=== PATIENT | female | born 1930 | race Caucasian/White ===

== ENCOUNTER 2016-10-27 12:22 | Inpatient (IN) ==
[2016-10-27] MEDS ORDERED: NS 1,000 ML IV ONE (12:55)
--- NOTE | 2016-10-27 13:07 | PROVIDER DOCUMENTATION ---
HPI-General Adult - General Source: patient, family - History of Present Illness -Gen Adult Nature of Presenting Problems: 86 year old female presents to the ER with complaint of wheezing and fever since last pm. Pt was seen in ER three weeks ago for food in esophagus, it was removed and pt was discharged with home breathing treatments. Onset/Duration: reports: last night <Ivonne Taylor - Last Filed: 10/27/16 14:56> <Ashkan Cope - Last Filed: 10/28/16 11:29> - General Chief Complaint: Possible Sepsis-D Stated Complaint: SOB, WHEEZING Time Seen by Provider: 10/27/16 12:34 Allergies/Adverse Reactions: Patient Allergies Allergy/AdvReac Type Severity Reaction Status Date / Time Sulfa (Sulfonamide Allergy Mild RASH Verified 10/27/16 12:52 Antibiotics) Home Medications: Home Medication List Medication Instructions Recorded Confirmed Last Taken Type Alprazolam 0.25 mg PO BID 09/23/16 10/27/16 10/27/16 History Aspirin [Aspir-Low] 81 mg PO DAILY 09/23/16 10/27/16 10/27/16 History Calcium Carbonate/Vitamin D3 1 tab PO DAILY 09/23/16 10/27/16 10/27/16 History [Oscal 500 + D] Calcium Polycarbophil [Fiber 625 mg PO DAILY 09/23/16 10/27/16 10/27/16 History Therapy] Citalopram [Celexa] 20 mg PO DAILY 09/23/16 10/27/16 10/27/16 History Clopidogrel [Plavix] 75 mg PO DAILY 09/23/16 10/27/16 10/27/16 History Dextran 70/Hypromellose 2 drop OPH DAILY 09/23/16 10/27/16 10/27/16 History [Artificial Tears] Meclizine [Antivert] 12.5 mg PO BID 09/23/16 10/27/16 10/27/16 History Memantine Xr [Namenda Xr] 7 mg PO DAILY 09/23/16 10/27/16 10/27/16 History Metoprolol Tartrate 25 mg PO BID 09/23/16 10/27/16 10/27/16 History Nitroglycerin [Nitrostat] 0.4 mg SL DIRECTED 09/23/16 10/27/16 Unknown History Quetiapine E.r. [Seroquel Xr] 50 mg PO QHS 09/23/16 10/27/16 1 Day Ago History Omeprazole [Prilosec] 40 mg PO BID #0 capsule. 09/24/16 10/27/16 10/27/16 Rx Review of Systems - Adult - REVIEW OF SYSTEMS - ADULT Constitutional: reports: fever. denies: chills Eyes: reports: no symptoms reported Ears, Nose, Mouth & Throat: reports: no symptoms reported Cardiovascular: reports: no symptoms reported Respiratory: reports: shortness of breath, wheezing Gastrointestinal: reports: no symptoms reported Genitourinary: reports: no symptoms reported Musculoskeletal: reports: no symptoms reported Integumentary: reports: no symptoms reported Neurological: reports: no symptoms reported Psychiatric: reports: no symptoms reported Endocrine: reports: no symptoms reported Hematologic/Lymphatic: reports: no symptoms reported Allergic/Immunologic: reports: no symptoms reported All Other Systems: Reviewed and Negative <Ivonne Taylor - Last Filed: 10/27/16 14:56> Past History - Adult - PAST MEDICAL HISTORY-ADULT Review of Records: reports: Old Records Reviewed, Nursing Assessment Review, Medications Reviewed Cardiovascular: reports: pacemaker Musculoskeletal: reports: arthritis Psychiatric: reports: other (dementia) - IMMUNIZATION STATUS Childhood Immunizations: See Nurse Assessment Flu Vaccine: See Nurse Assessment <Ivonne Taylor - Last Filed: 10/27/16 14:56> Physical Exam-General - CONSTITUTIONAL General Appearance: no apparent distress, slow to respond - EYES Eyes: PERRL/EOMI, pink conjunctivae - HEAD, EARS, NOSE, MOUTH & THROAT HENMT: normocephalic/atraumatic. negative: moist mucous membranes - NECK Neck: non-tender, supple - RESPIRATORY Respiratory: chest non-tender, wheezing - CARDIOVASCULAR Cardiovascular: normal peripheral pulses, regular rate, rhythm - GASTROINTESTINAL (ABDOMEN) Abdominal Exam: non tender, soft - MUSCULOSKELETAL Back Exam: no CVA tenderness, no vertebral tenderness Extremity: normal range of motion, non-tender - SKIN Integumentary: normal color, warm/dry - NEUROLOGIC Neurologic: grossly normal, no motor/sensory deficits - PSYCHIATRIC Psych/Mental Status: normal mood/affect, normal thought content, normal thought process, oriented x 3 <Ivonne Taylor - Last Filed: 10/27/16 14:56> Progress - EKG 1 Time of EKG reading by physician:: 13:09 EKG Read and Signed by:: Ashkan Cope EKG Interpretation (*Must complete 3 of following elements*): Abnormal Rate: 80 Rhythm: atrial sensed ventricular paced rhythm [place]: normal - CONSULTS/PCP/HOSPITALIST Notification #1 *Consult/PCP/Hospitalist*: Spoke with [facility], Dr. Oates Time Discussed: 14:38 Reason/Comments: Agreed to admission #2 Consult: Dr. Clifford Time Discussed: 15:32 Reason/Comments: Agreed to admit Consult Disposition: Admit <Ivonne Taylor - Last Filed: 10/27/16 14:56> Departure - Departure Time of Disposition Order: 15:32 Certified Medical Emergency: Emergent <Ivonne Taylor - Last Filed: 10/27/16 14:56> - Critical Care Note Total Time (mins): 65 Critical Care Statement: This patient required my direct personal management to treat or rule out processes, the absence of which, could potentiallly result in sudden, clinically significant life or limb threatening deterioration. <Ashkan Cope - Last Filed: 10/28/16 11:29> - Departure DIAGNOSIS: CHF (congestive heart failure) Qualifiers: Congestive heart failure type: unspecified congestive heart failure type Congestive heart failure chronicity: unspecified congestive heart failure chronicity Qualified Code(s): I50.9 - Heart failure, unspecified Pneumonia Qualifiers: Pneumonia type: due to unspecified organism Laterality: unspecified laterality Lung location: unspecified part of lung Qualified Code(s): J18.9 - Pneumonia, unspecified organism Disposition: ADMITTED INPATIENT 09 Condition: Stable Attestation - Scribe Verification/Attestation Scribe:: Ivonne Taylor Acting as Scribe for:: Ashkan Cope Scribe documention review:: This chart was documented by a scribe and accurately reflects the service the provider performed and the decisions made by the provider. <Ivonne Taylor - Last Filed: 10/27/16 14:56> Physician Attestation - Physician Attestation I, the provider, attest to the following statement:: Ashkan Cope Physician documentation Attestation:: This documentation recorded by the scribe accurately reflects the service I personally performed and the decisions made by me. <Ashkan Cope - Last Filed: 10/28/16 11:29>
[2016-10-27 13:25] LABS: BASO% 0.1 % (0.0-0.8); HEMATOCRIT 33.8 % (37.0-47.0); LYMPH# 0.69 X1000 (1.2-3.4); MANUAL DIFF NEEDED? NO; MCH 27.6 PG (27-31); MCHC 32.5 g/dL (33-37); MCV 84.9 FL (81-99); MONO# 0.56 X1000 (0.11-0.59); MONO% 4.9 % (1.7-9.3); MPV 11.4 FL (7.4-10.4); PLT 150 X1000 (130-400); RBC 3.98 XMIL (4.2-5.4)
[2016-10-27 13:28] LABS: INR 1.11; PROTIME 11.7 Seconds (9.2-11.7); PTT 30.7 Seconds (22.0-36.0)
[2016-10-27 13:46] LABS: URINE SOURCE CATH
[2016-10-27 13:47] LABS: ALBUMIN 3.4 g/dL (3.5-5.0); CALCIUM 9.2 mg/dL (8.8-10.2); POTASSIUM 3.7 mmol/L (3.5-5.1); TOTAL BILIRUBIN 0.8 mg/dL (0.20-1.00); TOTAL PROTEIN 7.1 g/dL (6.3-8.3)
[2016-10-27 13:52] LABS: ALLEN TEST YES; BE -4.3 mmoll (-3.0-3.0); BLOOD TYPE ARTERIAL; DRAW SITE R RADIAL; METHB 1.9 % (0.0-1.5); O2(CT) 14.2 mL/dL (15.0-23.0); PCO2(98.6) 31 mmHg (35-45); PO2(98.6) 127 mmHg (60-100); SAMPLE BLOOD; SAO2 99.5 % (95.0-100.0); THB 10.3 g/dL (11.5-17.4); pH(98.6) 7.41 (7.35-7.45)
[2016-10-27 13:54] LABS: MODALITY CANNULA
[2016-10-27 14:04] LABS: BILIRUBIN URINE SMALL (NEGATIVE); BLOOD URINE TRACE-LYSED (NEGATIVE); CLARITY CLOUDY (CLEAR); COLOR YELLOW; GLUCOSE URINE NEGATIVE (NEGATIVE); LEUKOCYTES URINE NEGATIVE (NEGATIVE); NITRITE URINE NEGATIVE (NEGATIVE); PH URINE 5.5; PROTEIN URINE 30 mg/dL (NEGATIVE); SP GRAVITY URINE >= 1.030; UROBILINOGEN URINE 0.2 EU/dL (0.2-1.0)
[2016-10-27 14:09] LABS: URINE CULTURE NEEDED? NO; URINE EPITHELIAL CELLS <10 /HPF (<10); URINE RBC <10 /HPF (<10); URINE WBC <10 /HPF (<10)
[2016-10-27 14:10] LABS: URINE CAST GRANULAR PRESENT /LPF
[2016-10-27] MEDS ORDERED: LEVAQUIN 750 MG in NS 150 ML IV ONE (14:35)
[2016-10-27] MEDS ORDERED: LEVAQUIN 750 MG/D5W 150 ML IV ONE (14:45)
[2016-10-27] MEDS ORDERED: LASIX IV ONE (14:51)
--- NOTE | 2016-10-27 15:20 | Diag Imaging Result Document ---
PROCEDURE NAME: CHEST-2 VIEWS - 10/27/2016 CHEST X-RAY, 2 VIEWS: COMPARISON: 09/24/2016. FINDINGS: Lung volumes are much lower. There is new ill-defined interstitial infiltrates bilaterally compatible with pulmonary edema. Stable cardiomegaly. There are trace pleural effusions. IMPRESSION: Cardiomegaly, pulmonary edema, pleural effusions.
[2016-10-27] MEDS ORDERED: VANCOMYCIN IV PER PHARMACY MISC SCH (16:30)
[2016-10-27] MEDS ORDERED: DUONEB (A & A) INH PRN (16:38)
[2016-10-27] MEDS ORDERED: NITROGLYCERIN SL SCH (16:38)
--- NOTE | 2016-10-27 16:53 | Diag Imaging Result Document ---
PROCEDURE NAME: CT THORAX W/O CONTRAST - 10/27/2016 CT OF THE CHEST: A CT dose reduction protocol was used. COMPARISON: Chest x-ray earlier. FINDINGS: There is pneumonia throughout the left lower lobe. There is also bronchitis diffusely and bilaterally. There is some ill-defined infiltrate/atelectasis in the right upper lobe. There is cardiomegaly. Large hiatal hernia. There is a left-sided dual-chamber pacemaker in good position. There is significant scoliosis and degeneration throughout the spine. No acute bony lesions. IMPRESSION: 1. Left lower lobe infiltrate/pneumonia. 2. Small infiltrate in the right upper lobe. 3. Severe cardiomegaly. 4. Severe chronic bronchitis. [facility]
[2016-10-27] MEDS: ZOSYN 3.375 GM/NS 50 ML IV SCH ×2 (17:00→22:39)
[2016-10-27] MEDS ORDERED: VANCOMYCIN 1 GM/NS 250 ML IV SCH (18:00)
--- NOTE | 2016-10-27 18:06 | HISTORY AND PHYSICAL ---
CHIEF COMPLAINT: Shortness of breath and wheezing. HISTORY OF PRESENT ILLNESS: Mrs. Zuleta is an 86-year-old female with a known history of CAD, sick sinus syndrome status post pacemaker, hypertension, dementia and others who presents with worsening wheezing and shortness of breath over the past few days. Patient has dementia and is unable to give any type of history. Her daughter is at the bedside able to answer questions. The daughter states that she has been wheezing and coughing more and visibly short of breath. Home health came over yesterday and measured temperature axillary at 102 degrees Fahrenheit. There has been no lower extremity edema. No complaints of chest pain. No abdominal pain, nausea or vomiting. Mrs. Zuleta was here around a month ago as she had a choking episode and required EGD by Dr. Guerrero. Her daughter states that since that time she has not really been doing well respiratory wayne, coughing and wheezing but worse over the past few days. When she came to the ER today she had labs and diagnostics done and she was noted to have mildly elevated white count. She was mildly anemic with renal insufficiency, elevated troponin and proBNP elevation. Chest x- ray shows bilateral infiltrates consistent with pulmonary edema. She is now going to be admitted for further treatment and evaluation. PAST MEDICAL HISTORY: 1. CAD. 2. Sick sinus syndrome status post pacemaker. 3. Dementia. 4. Hypertension. 5. MVR. 6. Hyperlipidemia. 7. GERD. SURGICAL HISTORY: CABG, pacemaker implantation and revision, right breast lumpectomy, hysterectomy, cholecystectomy. SOCIAL HISTORY: Patient lives at home with her daughter. There is also home health and patient does not smoke, drink or use illicit substances. FAMILY HISTORY: Noncontributory. REVIEW OF SYSTEMS: Essentially unable to be obtained. ALLERGIES: To sulfa. HOME MEDICATIONS: Xanax 0.25 mg b.i.d., aspirin 81 mg daily, calcium carbonate and vitamin D 1 daily, fiber capsule 1 daily, Celexa 20 mg daily, Plavix 75 mg daily, Antivert 12.5 mg b.i.d., Namenda XR 7 mg daily, metoprolol tartrate 25 mg b.i.d., Nitrostat 0.4 mg as needed, Seroquel XR 50 mg at bedtime, Prilosec 40 mg b.i.d. PHYSICAL EXAMINATION: VITAL SIGNS: Blood pressure is 112/49, heart rate 73, respiratory rate is 18, O2 saturation 100% on 2 L, temperature is 99.9 degrees. GENERAL: This is a frail and elderly appearing 86-year-old female lying in hospital bed in no acute distress. NEUROLOGIC: The patient is drowsy and lethargic. She opens her eyes to verbal stimulus but is confused. She follows commands with globalized weakness. HEENT: Head atraumatic and normocephalic. Her pupils are equal, round, reactive to light. Oral mucosa is moist. Trachea is midline. There is no JVD. CHEST: Diminished throughout with the right midlung wheezes or crackles. CV: Regular rate and rhythm. S1-S2 is noted. GI: Soft, nondistended, nontender. Bowel sounds are positive. EXTREMITIES: Without edema, clubbing or cyanosis. Pulses are diminished but palpable bilaterally. DIAGNOSTIC DATA: Chest x-ray shows bilateral infiltrates consistent with edema. WBC 11.41, hemoglobin 11, hematocrit 33.8, platelet count 150,000. INR 1.11 ABG on nasal cannula shows pH 7.41, CO2 31, PO2 127, lactate 1.5. Sodium 137, potassium 3.7, chloride 102 , CO2 19, anion gap is 16, BUN is 20, creatinine 1.9, glucose 156. LFTs within normal limits. Troponin is 0.147, CK 120, proBNP is 19,774, albumin 3.4, lactate is 1.8. Urine is cloudy but does not show any bacteria. ASSESSMENT AND PLAN: 1. Dyspnea: Likely a combination of aspiration pneumonia as well as congestive heart failure. We are going to work her up for both. We will diurese and add antibiotics, breathing treatments, aggressive pulmonary toilet and oxygen as needed. 2. Aspiration pneumonia: Patient has reported to have occasional difficulty swallowing which would lead us believe that she at least has some aspiration which we will cover for with Zosyn. Blood cultures have been obtained and we will add a sputum culture and continue aggressive pulmonary toilet and monitor her closely. 3. H/o Congestive heart failure not in exacerbation: Her last echocardiogram was in 2012 which showed a preserved ejection fraction with mild to moderate severe mitral regurgitation but there was no elevation of pulmonary pressures. 4. Coronary artery disease: We are going to continue to trend her cardiac enzymes and check an echocardiogram, continue her aspirin and metoprolol as well as her Plavix. 5. Dementia: Chronic and stable, continue home medications. 6. History of gastroesophageal reflux disease: Continue her omeprazole. 7. Clinically dry: will give gentle hydration overnight and reassess her. 7. Deep vein thrombosis prophylaxis provided with Lovenox. Further recommendations to follow. Dictated by RUBIN Orellana for Shine Clifford MD MTDD
[2016-10-27] MEDS: DUONEB (A & A) INH SCH (20:20)
[2016-10-27] MEDS: XANAX PO SCH (22:57)
[2016-10-27] MEDS: NS 1,000 ML IV SCH (22:57)
[2016-10-27] MEDS: SEROQUEL XR PO SCH (22:58)
[2016-10-27] MEDS: LOPRESSOR PO SCH (22:58)
[2016-10-27] MEDS: ANTIVERT PO SCH (22:58)
[2016-10-27] MEDS: PRILOSEC PO SCH (22:58)
[2016-10-28] MEDS: DUONEB (A & A) INH SCH ×7 (00:25→23:00)
[2016-10-28] MEDS: NS 1,000 ML IV SCH (01:51)
[2016-10-28] MEDS: ZOSYN 3.375 GM/NS 50 ML IV SCH ×4 (04:13→23:58)
[2016-10-28 06:21] LABS: HEMATOCRIT 31.2 % (37.0-47.0); HEMOGLOBIN 9.8 g/dL (12.0-16.0); MCH 27.4 PG (27-31); MCHC 31.4 g/dL (33-37); MCV 87.2 FL (81-99); MPV 11.8 FL (7.4-10.4); RBC 3.58 XMIL (4.2-5.4)
[2016-10-28 06:47] LABS: HEMOGLOBIN A1C 5.7 % (4.8-6.0)
[2016-10-28 06:56] LABS: AGAP 17; BUN 21 mg/dL (8-22); CALCIUM 8.1 mg/dL (8.8-10.2); CHLORIDE 106 mmol/L (98-107); COSMO 282; HDL 44 mg/dL (45-65); IRON SATURATION 5 %; LDL 34 mg/dL; POTASSIUM 3.6 mmol/L (3.5-5.1); SODIUM 140 mmol/L (136-145); TCO2 17 mmol/L (25-35); TIBC 222 ug/dL; TOTAL IRON 12 ug/dL (49-151); TRIGLYCERIDES 63 mg/dL (35-135); UNBOUND IRON 210 ug/dL (112-346); VLDL 13 mg/dL
[2016-10-28] MEDS ORDERED: LASIX IV SCH (09:00)
[2016-10-28 09:17] LABS: RETIC% 0.79 % (0.8-2.1); RETIC-HE 27.8 PG (28.2-36.6)
--- NOTE | 2016-10-28 11:37 | Diag Imaging Result Document ---
PROCEDURE NAME: CHEST-PORTABLE - 10/28/2016 PORTABLE CHEST: COMPARISON: 10/27/2016. FINDINGS: Stable pacemaker and sternotomy changes. Stable mild cardiomegaly. Lung volumes are improved. There is significant improvement in the pulmonary vascular congestion and ill-defined central infiltrates. There is some stable retrocardiac infiltrate or atelectasis. There are probably trace pleural effusions. IMPRESSION: Improvement from prior.
[2016-10-28] MEDS ORDERED: NS 1,000 ML IV SCH (13:26)
[2016-10-28] MEDS: ANTIVERT PO SCH ×2 (14:40→21:52)
[2016-10-28] MEDS: ASPIRIN EC PO SCH (14:40)
[2016-10-28] MEDS: CELEXA PO SCH (16:50)
[2016-10-28] MEDS: PRILOSEC PO SCH ×2 (16:51→21:52)
[2016-10-28] MEDS: TEARISOL OPH SOLUTION OPH SCH (16:51)
[2016-10-28] MEDS: XANAX PO SCH ×2 (16:51→21:52)
[2016-10-28] MEDS: OSCAL 500 + D PO SCH (16:51)
[2016-10-28] MEDS: PLAVIX PO SCH (16:51)
[2016-10-28] MEDS: LOPRESSOR PO SCH ×2 (16:52→21:53)
[2016-10-28] MEDS: NAMENDA XR PO SCH (16:52)
[2016-10-28] MEDS: FIBERCON PO SCH (16:52)
--- NOTE | 2016-10-28 18:24 | PROGRESS NOTE ---
DATE: 10/28/2016 SUBJECTIVE: Today Ms. Zuleta referred to be doing a little better. Did not have any major complaints. She did have a mild cough. OBJECTIVE: Vital signs: Blood pressure is 142/59, pulse of 97, respirations 16 , temperature is 99.0 degrees. General: Ms. Zuleta is an 86-year-old female. She was in bed. Did not seem to be in any remarkable distress. HEENT: Mucosa is pink and moist. Anicteric and acyanotic. Neck: Supple. Chest: Air entry was bilaterally reduced. There is a few bibasilar coarse crepitations. Cardiovascular: Regular rate and rhythm. There is no murmurs. Abdomen: Soft, distended but nontender. Extremities: No pedal edema. CRNA: Patient was alert, she is a little hard of hearing but she is able to follow basic commands. LABORATORY DATA: WBC 6.85, hemoglobin is 9.8, platelet count of 116,000 with reticulocyte count 0.79. Chemistry reviewed. Creatinine is 1.6 which is relatively improved from 1.9 yesterday. TSH is normal. A CT scan of the chest done yesterday showed left lower lobe infiltrate/ pneumonia, small infiltrate in the right upper lobe, severe cardiomegaly, severe bronchitis. A chest x-ray this morning shows improvement from prior. ASSESSMENT: 1. Acute respiratory distress likely secondary to aspiration pneumonia. 2. Hypoxemia on presentation due to #1. 3. Relative iron deficiency anemia. 4. Hypoproliferative bone marrow state with extremely low reticulocyte count for the degree of anemia. 5. Acute kidney injury improving. 6. Pancytopenia. I think there have been some dilutional aspect of it but I think generally patient also has a hypoproliferative bone marrow state. 7. Mildly elevated troponins. The patient denies any chest pain. Could be related to the renal disease or a subendocardial ischemia. PLAN: 1. So in general Ms. Zuleta seems to be doing relatively fine. She still has some wheezing and some chest findings but I think is mainly related to aspirations. We are going to wait on the swallow evaluation tomorrow before we feed her. 2. In terms of the renal function will continue with the IV fluids but I will cut down the rate to 50 to prevent any overhydration. 3. Will start the patient on p.o. iron supplementation with the hypoproliferative bone marrow state. for now we will replace the iron and patient will follow up with Hematology/Oncology on outpatient basis. 4. I think by tomorrow after the swallow evaluation will start the patient on some diet, get PT to work with her and plan transition her to outpatient/home. MTDD
[2016-10-28] MEDS: FERROUS SULFATE PO SCH (21:52)
[2016-10-28] MEDS: PERICOLACE PO SCH (21:53)
[2016-10-28] MEDS: SEROQUEL XR PO SCH (21:53)
[2016-10-29] MEDS: DUONEB (A & A) INH SCH ×5 (03:18→22:40)
[2016-10-29] MEDS: ZOSYN 3.375 GM/NS 50 ML IV SCH ×3 (05:10→20:27)
[2016-10-29 06:40] LABS: HEMATOCRIT 31.6 % (37.0-47.0); HEMOGLOBIN 9.9 g/dL (12.0-16.0); MCH 27.9 PG (27-31); MCHC 31.3 g/dL (33-37); MPV 11.5 FL (7.4-10.4); RBC 3.55 XMIL (4.2-5.4)
[2016-10-29 07:19] LABS: POTASSIUM 3.4 mmol/L (3.5-5.1); SODIUM 147 mmol/L (136-145)
[2016-10-29 08:10] LABS: AGAP 17; BUN 18 mg/dL (8-22); CALCIUM 8.3 mg/dL (8.8-10.2); CHLORIDE 112 mmol/L (98-107); COSMO 295; TCO2 18 mmol/L (25-35)
[2016-10-29] MEDS: ANTIVERT PO SCH ×2 (08:48→21:17)
[2016-10-29] MEDS: XANAX PO SCH ×2 (08:49→21:17)
[2016-10-29] MEDS: CELEXA PO SCH (08:49)
[2016-10-29] MEDS: ASPIRIN EC PO SCH (08:49)
[2016-10-29] MEDS: OSCAL 500 + D PO SCH (08:50)
[2016-10-29] MEDS: PERICOLACE PO SCH ×2 (08:50→21:17)
[2016-10-29] MEDS: PRILOSEC PO SCH ×2 (08:50→21:17)
[2016-10-29] MEDS: PLAVIX PO SCH (08:50)
[2016-10-29] MEDS: FERROUS SULFATE PO SCH ×2 (08:51→21:18)
[2016-10-29] MEDS: LOPRESSOR PO SCH ×2 (08:51→21:17)
[2016-10-29] MEDS: NAMENDA XR PO SCH (08:51)
[2016-10-29] MEDS: FIBERCON PO SCH (08:51)
--- NOTE | 2016-10-29 09:37 | EKG Report ---
Test Performed on : 10/27/2016 1:09:40 PM Test Reason : No ORder in Twenty Jeans Blood Pressure : / mmHG Vent. Rate : 080 BPM Atrial Rate : 080 BPM P-R Int : 176 ms QRS Dur : 178 ms QT Int : 498 ms P-R-T Axes : 096 265 065 degrees QTc Int : 574 ms Atrial-sensed ventricular-paced rhythm Abnormal ECG When compared with ECG of 23-SEP-2016 19:35, Vent. rate has decreased BY 2 BPM Unconfirmed Result
--- NOTE | 2016-10-29 09:59 | Diag Imaging Result Document ---
PROCEDURE NAME: CHEST-PORTABLE - 10/29/2016 AP PORTABLE CHEST, 10/29/2016 AT 0500 HOURS: FINDINGS: There is elevation of the left hemidiaphragm. There is some atelectasis or pneumonia in the left lower lobe. The right lung is actually clearer than on 10/28/2016. The patient is rotated somewhat to the right. IMPRESSION: Atelectasis versus pneumonia left lower lobe.
--- NOTE | 2016-10-29 11:52 | Diag Imaging Result Document ---
PROCEDURE NAME: BA SWALLOW W/VIDEO SPEECH THER - 10/29/2016 MODIFIED BARIUM SWALLOW: FINDINGS: There is trace aspiration with liquid barium. This does elicit a cough reflex. No aspiration is seen with thick liquid barium. There is a large hiatal hernia and presbyesophagus with possible spasm seen in the distal half of the thoracic aorta. IMPRESSION: 1. Minimal aspiration and cricopharyngeal achalasia. 2. Presbyesophagus and hiatal hernia.
[2016-10-29] MEDS: D5W 1,000 ML IV SCH ×2 (12:16→21:16)
[2016-10-29] MEDS: TEARISOL OPH SOLUTION OPH SCH (12:31)
[2016-10-29] MEDS: PROCARDIA PO SCH (17:43)
--- NOTE | 2016-10-29 18:14 | PROGRESS NOTE ---
DATE: 10/29/2016 SUBJECTIVE: Today Ms. Zuleta referred to be doing a little better. Did not actually have any complaints. OBJECTIVE: General: Ms. Zuleta is an 86-year-old female. She was in bed. Did not seem to be in any distress. HEENT: Mucosa is pink and moist. Anicteric. Acyanotic. Neck: Supple. Chest: Air entry is bilaterally reduced. There are a few bibasilar crepitations and there is some end-expiratory wheezing. Cardiovascular: Regular rate and rhythm. There sidney no murmurs, no rubs, no gallops. Abdomen: Soft, nontender. Extremities: No pedal edema. ACETYLENE BURNER: Patient was alert. Somewhat hard to hear but able to follow some basic commands. LABORATORY DATA: WBC is 5.79, hemoglobin is 9.9, platelet count of 126,000. Chemistry: Sodium is 147, potassium is 3.4, chloride is 112, creatinine is 1.6. A repeat chest x-ray today shows atelectasis versus pneumonia in the left lower lobe. ASSESSMENT: 1. Acute hypoxemic respiratory failure on presentation due to left lower lobe pneumonia. Questionable for aspiration. 2. Relative iron deficiency anemia. 3. Hypoproliferative bone marrow state. Reticulocyte count ridiculously low for the degree of anemia. 4. Acute on chronic kidney injury. Seems to be relatively improving. 5. Hypernatremia and hyperchloremia we will switch the current normal saline fluid to D5 for baseline hydration. 6. Esophageal spasm with achalasia. The patient did have swallow evaluation today because of the presumed aspiration pneumonia. The findings were suggestive of some cricopharyngeal achalasia, diffuse esophageal spasms. GI was recommended to evaluate the patient. I have started the patient on nifedipine for the esophageal spasms and also the achalasia and we ask GI to evaluate the patient. Swallow evaluation also recommended a mechanical soft diet. We have started the patient on that today. PLAN: So in general, Ms. Zuleta seems to be doing a little better. She presented because of because of shortness of breath and wheezing, which a CT scan of the chest revealed a left lower lobe infiltrate/pneumonia. The patient is currently on IV antibiotics, Zosyn and vancomycin. She is getting respiratory toilette. Because of the concern of aspiration, a swallow evaluation and modified swallow was done. Mechanical soft diet has been recommended. The patient was found to have some achalasia with esophageal spasms. I started her on nifedipine. She is already on nitroglycerin which will help as well and we will consult GI to evaluate the patient. I think in the long-term though for disposition the patient should be able to go home. She has very good care. She has a healthcare provider that comes and stays with her from 8 in the morning till about 6 in the evening and then the daughter takes over till the following morning.
[2016-10-29] MEDS: SEROQUEL XR PO SCH (21:17)
[2016-10-30] MEDS: DUONEB (A & A) INH SCH ×6 (02:14→23:30)
[2016-10-30] MEDS: ZOSYN 3.375 GM/NS 50 ML IV SCH ×4 (02:37→23:53)
[2016-10-30 06:49] LABS: HEMATOCRIT 29.7 % (37.0-47.0); HEMOGLOBIN 9.3 g/dL (12.0-16.0); MCH 27.8 PG (27-31); MCHC 31.3 g/dL (33-37); MCV 88.9 FL (81-99); MPV 11.5 FL (7.4-10.4); RBC 3.34 XMIL (4.2-5.4)
[2016-10-30 07:11] LABS: CALCIUM 8.6 mg/dL (8.8-10.2); POTASSIUM 3.3 mmol/L (3.5-5.1)
[2016-10-30] MEDS: TEARISOL OPH SOLUTION OPH SCH (09:45)
[2016-10-30] MEDS: PRILOSEC PO SCH ×2 (09:46→20:44)
[2016-10-30] MEDS: FERROUS SULFATE PO SCH ×2 (09:46→20:44)
[2016-10-30] MEDS: PROCARDIA PO SCH ×3 (09:46→20:44)
[2016-10-30] MEDS: NAMENDA XR PO SCH (09:46)
[2016-10-30] MEDS: FIBERCON PO SCH (09:50)
[2016-10-30] MEDS: ASPIRIN EC PO SCH (09:50)
[2016-10-30] MEDS: LOPRESSOR PO SCH ×2 (09:50→20:44)
[2016-10-30] MEDS: PLAVIX PO SCH (09:50)
[2016-10-30] MEDS: OSCAL 500 + D PO SCH (09:51)
[2016-10-30] MEDS: ANTIVERT PO SCH ×2 (09:51→20:44)
[2016-10-30] MEDS: CELEXA PO SCH (09:51)
[2016-10-30] MEDS: PERICOLACE PO SCH ×2 (09:51→20:44)
[2016-10-30] MEDS: XANAX PO SCH ×2 (09:51→20:44)
--- NOTE | 2016-10-30 13:58 | PROGRESS NOTE ---
DATE: 10/30/2016 SUBJECTIVE: Ms. Chelle Zuleta is an 86-year-old white female who was admitted on 10/27/2016 and has a known history of coronary artery disease, sick sinus syndrome status post pacemaker, hypertension, and dementia as well as others, who presented with worsening wheezing and shortness of breath in the past couple of days before admission. She has dementia, unable to give any type of history. Her daughter is at bedside and they are taking care of her. States she has just had more wheezing and coughing, seemed to be very weak and could not hardly lift her up. Did have a temperature at home and she was admitted with what appears to be pneumonia. She had a choking episode a month ago and had an EGD per Dr. Guerrero. The daughter states that since that time has not been doing well respiratory wayne, with coughing and wheezing which is worse. PAST MEDICAL HISTORY: 1. Coronary artery disease. 2. Sick sinus syndrome status post pacemaker. 3. Dementia. 4. Hypertension. 5. Mitral valve regurgitation. 6. Hyperlipidemia. 7. Gastroesophageal reflux disease. PAST SURGICAL HISTORY: Status post CABG, pacemaker implantation, revision of right breast lumpectomy, hysterectomy, cholecystectomy. PHYSICAL EXAMINATION: General: She is sitting up in a chair at this time, sleeping. Daughter states she definitely looks better, but she is very weak. Would like to continue physical therapy. Vital signs: She remains afebrile. Temperature 97.6 degrees, pulse 90, respirations 18, blood pressure 107/57. HEENT: Pupils are equal, round, and reactive. Respiratory: Lungs are clear in all lung jenkins. Cardiovascular: Regular rhythm and rate, without murmur or S3. URINE OUTPUT: 1256. LABORATORIES: Reviewed from yesterday, hematocrit stable at 29. Today, white blood cell count 5550, hemoglobin 9.3, hematocrit 29, and platelet count 141,000. Chemistry: Sodium 146, potassium 3.3, chloride 112, bicarbonate 22, BUN 15, creatinine 1.4, blood sugars 119 and 112. DIAGNOSTIC TESTS: She had a modified barium swallow with minimal aspiration, cricopharyngeal achalasia, presbyesophagus, and hiatal hernia. ASSESSMENT AND PLAN: 1. Acute hypoxemic respiratory failure on presentation due to left lower lobe pneumonia, questionable for aspiration. Continue present treatment, bronchodilators, antibiotic, and supplemental oxygen. 2. Relative iron deficiency anemia, stable. 3. Hypoproliferative bone marrow state. Reticulocyte count ridiculously low for the degree of anemia. 4. Acute on chronic kidney injury that seems to be improving with volume. 5. Hypernatremia and hyperkalemia. Switched from normal saline to D5 for baseline hydration. 6. Esophageal spasm and achalasia. Patient did have swallow evaluation because of presumed aspiration pneumonia. Findings suggested some cricopharyngeal achalasia and diffuse esophageal spasm. GI was recommended to evaluate the patient. Started the patient on nifedipine for esophageal spasms and also for achalasia, and will have GI evaluate. 7. In general, Ms. Zuleta is doing better. She presented because of shortness of breath and weakness I think we are making improvement in that. We need to begin physical therapy and work on her swallowing. Physical Therapy is already involved. I reviewed her orders. Nifedipine 10 mg t.i.d. She is on D5W at 50 mL an hour. Ferrous sulfate 325 mg b.i.d. She is on vancomycin and Zosyn, alprazolam 0.25 mg b.i.d., Plavix 75 mg a day, calcium carbonate 1 daily, memantine 7 mg p.o. daily, Quetiapine ER 50 mg at bedtime, Prilosec 40 mg b.i.d., Lopressor 25 mg b.i.d., calcium polycarbophil, which is FiberCon, and she takes 625 mg p.o. daily of that.
--- NOTE | 2016-10-30 16:47 | CONSULTATION ---
DATE OF CONSULTATION: 10/30/2016 REFERRING PHYSICIAN: Carlos Macedo M.D. PRIMARY CARE PHYSICIAN: Johnny Eason M.D. INDICATION FOR CONSULTATION: Dysphagia. HISTORY OF PRESENT ILLNESS: The patient is an 86-year-old white female who was initially evaluated by our service on 09/24/2016 when she presented to the emergency room with food impaction. She underwent an EGD that revealed cricopharyngeal achalasia, tortuous esophagus and a Schatzki's ring with luminal restriction. The pecan was removed endoscopically. However, it was noted that her cricopharyngeal achalasia was so tight that the Bennett net broke while extracting the pecan. The largest part of the pecan was removed but a portion of the pecan had to be pushed into the gastric lumen, which we were able to do with minimal difficulty. She was discharged to home 24 hours later tolerating a full liquid diet. At home, the daughter states that she had confusion for 2-3 days following the general anesthesia that was required for removal of the foreign body. She was evaluated by Dr. Johnny Eason and it was determined that the patient should not undergo any elective procedures. However, the patient has continued to have coughing and wheezing, particularly after food intake which has been associated with shortness of breath. On 10/26, she developed a fever to 102 degrees as well as a cough. She is also reluctant to eat many foods. She was scheduled to undergo an EGD with dilation in November but has since been admitted for further evaluation. This admission, she had a modified barium swallow performed on 10/29/2016 that reveals minimal aspiration but significant cricopharyngeal achalasia, presbyesophagus and a hiatal hernia. She does have spasms in the distal esophagus as well as the documented Schatzki's ring. We are asked to participate in her care. See our consult note from 2016 for full details of her medical history. PAST MEDICAL HISTORY: 1. Coronary artery disease. 2. Hypertension. 3. Sick sinus syndrome status post pacemaker. 4. Dementia. 5. Hypertension. 6. Mitral regurgitation. 7. Hyperlipidemia. 8. Syncope. 9. GERD. 10. MRSA in 2012. 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 13. Schatzki's ring with luminal narrowing. 14. Large hiatal hernia. 15. Multiple gastric polyps. 16. Nonerosive gastritis. PAST SURGICAL HISTORY: reviewed. MEDICATIONS AND ALLERGIES: Per [employer]. Confirmed with her daughter. PHYSICAL EXAM: On exam, she is in no acute distress. her blood pressure is 107/57, pulse of 91 , respirations of 18 and temp of 97.6. On pulmonary exam, her breath sounds are coarse. She has a regular rate and rhythm on cardiac exam with a 3/6 systolic murmur. her abdomen is soft and non- tender. Her extremities are negative for edema. She is alert and oriented. She is able to answer direct questions. OBJECTIVE DATA: Her labs and xrays were personally reviewed. IMPRESSION; 1. Cricopharyngeal achalasia. 2. Known Schatzki's ring. 3. Dysphagia. 4. Possible aspiration. 5. GERD. RECOMMENDATIONS: 1. In light of the patient's ongoing symptoms, and her fever, we will schedule the patient for EGD with dilation. 2. The patient is on Plavix and therefore her procedure will need to be deferred until Saturday to minimize the risk of bleeding. Please hold her Plavix for the next 3 days. 3. Please use SCDs for DVT prophylaxis. 4. Continue Prilosec 40 mg twice a day. 5. Additional recommendations to follow based on her clinical course. 6. Our recommendations were Dr. Johnny Eason who is in agreement. Because of the patient's symptoms and ongoing issues, the benefits of an EGD with dilation outweigh the risk. We will hope to use minimal anesthesia to minimize her confusion post procedure. Dr. Eason did note that the patient's dementia has become progressively worse over the last several months even prior to her endoscopic procedure. 7. Additional recommendations to follow based on her clinical course. [facility]
[2016-10-30] MEDS ORDERED: VANCOMYCIN 1 GM/NS 250 ML IV SCH (20:00)
[2016-10-30] MEDS: SEROQUEL XR PO SCH (20:44)
[2016-10-31] MEDS: DUONEB (A & A) INH SCH ×6 (03:54→23:26)
[2016-10-31] MEDS: ZOSYN 3.375 GM/NS 50 ML IV SCH ×4 (06:17→23:16)
[2016-10-31] MEDS: D5W 1,000 ML IV SCH (08:29)
[2016-10-31] MEDS: ASPIRIN EC PO SCH (09:38)
[2016-10-31] MEDS: TEARISOL OPH SOLUTION OPH SCH (09:38)
[2016-10-31] MEDS: LOPRESSOR PO SCH ×2 (09:38→20:48)
[2016-10-31] MEDS: NAMENDA XR PO SCH (09:39)
[2016-10-31] MEDS: XANAX PO SCH ×2 (09:39→20:48)
[2016-10-31] MEDS: FERROUS SULFATE PO SCH ×2 (09:39→20:48)
[2016-10-31] MEDS: PROCARDIA PO SCH ×3 (09:39→16:58)
[2016-10-31] MEDS: ANTIVERT PO SCH ×2 (09:39→20:48)
[2016-10-31] MEDS: PRILOSEC PO SCH ×2 (09:39→20:48)
[2016-10-31] MEDS: PERICOLACE PO SCH ×2 (09:39→20:48)
[2016-10-31] MEDS: CELEXA PO SCH (09:39)
[2016-10-31] MEDS: OSCAL 500 + D PO SCH (09:39)
[2016-10-31] MEDS: FIBERCON PO SCH (09:39)
--- NOTE | 2016-10-31 14:11 | PROGRESS NOTE ---
DATE: 10/31/2016 Ms. Zuleta is doing a little bit better, still having trouble with her swallowing. Think the plan is to try and do an esophageal dilatation. Continue her physical therapy. Her breathing is improved. VITAL SIGNS: Afebrile, temp 98.2 degrees, pulse 84, respirations 14. Lungs: Are clear in all lung jenkins anterior and lateral. Cardiovascular: Regular rhythm and rate without murmur or S3. Abdomen: Soft. Skin is warm and dry. Urine output was 1200 mL. LAB: White count 5550, hematocrit 29, platelet count 141,000, sodium 146, potassium 3.3, chloride 112, bicarb 22, BUN 15, creatinine 1.4 which has come down from 1.6. ASSESSMENT AND PLAN: 1. Acute hypoxemic respiratory failure. Presented with left lower lobe pneumonia. Questionable aspiration. Appears she is just aspirating. Barium swallow was suggested. 2. Dysphagia. Suspect esophageal stricture. See if we can do some dilatation. Dr. Guerrero is planning, I think, on doing that Saturday. Hold her blood thinner. 3. Iron-deficiency anemia. Stable. 4. Acute on chronic kidney injury. Continues to improve. Continue volume. Present IV fluids. 5. Hypernatremia, hyperkalemia which is improved. 6. Esophageal spasm and achalasia. Suspect there may be some strictures so we will see if we can get her dilated. 7. History of coronary artery disease. 8. History of sick sinus syndrome. 9. Dementia. REVIEW OF ORDERS: Reviewed orders. No change at this point.
[2016-10-31] MEDS: SEROQUEL XR PO SCH (20:48)
[2016-11-01] MEDS: DUONEB (A & A) INH SCH ×6 (03:22→23:28)
[2016-11-01] MEDS: ZOSYN 3.375 GM/NS 50 ML IV SCH ×3 (05:51→17:20)
[2016-11-01] MEDS: D5W 1,000 ML IV SCH ×2 (05:55→17:21)
[2016-11-01] MEDS ORDERED: DIFLUCAN PO ONE (06:56)
--- NOTE | 2016-11-01 07:58 | PROGRESS NOTE ---
DATE: 11/01/2016 SUBJECTIVE: Ms. Zuleta is resting, sleeping comfortably. Apparently got pretty upset last night, took her IV out and wanted to go home, but she is sleeping soundly at the present time. It is about 7:00 in the morning. OBJECTIVE: Vital signs: Temperature 98.2, pulse 90, respirations 16, blood pressure 133/69. Eyes: Pupils are equal, round, reactive. Neck: CVP less than 6 cm. Lungs: Clear in all lung jenkins. Cardiovascular: Regular rhythm and rate without murmurs. : Urine output 1 L. ASSESSMENT: 1. Patient with symptoms trouble swallowing, suspect some aspiration. So plan an EGD with dilatation, holding the blood thinner. Patient was on Plavix, so I think the procedure is planned for tomorrow. 2. Dementia. 3. History of coronary artery disease. 4. Hypertension. 5. Sick sinus syndrome, status post pacemaker. 6. History of mitral regurgitation. 7. Known cricopharyngeal achalasia, torturous esophagus, Schatzki's ring with luminal narrowing. Large hiatal hernia, history of gastric polyps. History of nonerosive gastritis in the past. PLAN: Continue present orders. MEDICATIONS: Patient on Diflucan 100 mg daily which I started today. Complaining of a little bit of yeast so will take 100 mg p.o. daily. Vancomycin, she is on 1 g q.4-8 hours. Procardia 10 mg t.i.d., sennosides docusate 1 b.i.d., ferrous sulfate 325 mg b.i.d., Zosyn q.6 hours, Xanax 0.25 mg b.i.d. She is on quetiapine ER 50 mg at bedtime. Prilosec 40 mg b.i.d., metoprolol 25 mg b.i.d., calcium polycarbophil 625 mg daily. Celexa 20 mg a day. Aspirin 81 mg a day.
[2016-11-01] MEDS: ANTIVERT PO SCH ×2 (09:28→21:15)
[2016-11-01] MEDS: PROCARDIA PO SCH ×3 (09:28→17:19)
[2016-11-01] MEDS: CELEXA PO SCH (09:28)
[2016-11-01] MEDS: FERROUS SULFATE PO SCH ×2 (09:29→21:15)
[2016-11-01] MEDS: ASPIRIN EC PO SCH (09:29)
[2016-11-01] MEDS: PERICOLACE PO SCH ×2 (09:29→21:15)
[2016-11-01] MEDS: LOPRESSOR PO SCH ×2 (09:29→21:15)
[2016-11-01] MEDS: NAMENDA XR PO SCH (09:29)
[2016-11-01] MEDS: TEARISOL OPH SOLUTION OPH SCH (09:30)
[2016-11-01] MEDS: OSCAL 500 + D PO SCH (09:30)
[2016-11-01] MEDS: PRILOSEC PO SCH ×2 (09:30→21:15)
[2016-11-01] MEDS: FIBERCON PO SCH (09:30)
[2016-11-01] MEDS: XANAX PO SCH ×2 (12:20→21:15)
--- NOTE | 2016-11-01 12:33 | Diag Imaging Result Document ---
PROCEDURE NAME: CHEST-PORTABLE - 11/01/2016 SINGLE FRONTAL RADIOGRAPH OF THE CHEST: COMPARISON: 10/29/2016. FINDINGS: Inspiration is suboptimal. There is stable elevation of the left hemidiaphragm. Mild opacity suggesting atelectasis and/or infiltrate at the left lung base has probably improved somewhat during the interval. No new consolidation is identified. Cardiac silhouette is stable. IMPRESSION: Suggestion of some improvement of the infiltrate or atelectasis at the left lung base. Stable chest, otherwise.
[2016-11-01] MEDS: SEROQUEL XR PO SCH (21:15)
[2016-11-01] MEDS: VANCOMYCIN 1 GM/NS 250 ML IV SCH (21:24)
[2016-11-01] MEDS ORDERED: MISC. PHARMACY COMMUNICATION SCH (23:45)
[2016-11-02] MEDS: ZOSYN 3.375 GM/NS 50 ML IV SCH ×5 (00:34→23:07)
[2016-11-02] MEDS: D5W 1,000 ML IV SCH ×2 (05:29→16:21)
[2016-11-02] MEDS: DUONEB (A & A) INH SCH ×6 (05:38→22:48)
[2016-11-02 07:47] LABS: ALBUMIN 2.6 g/dL (3.5-5.0); CALCIUM 8.5 mg/dL (8.8-10.2); MAGNESIUM 1.7 mg/dL (1.5-2.7); POTASSIUM 2.7 mmol/L (3.5-5.1); TOTAL BILIRUBIN 0.64 mg/dL (0.20-1.00); TOTAL PROTEIN 5.9 g/dL (6.3-8.3)
[2016-11-02] MEDS ORDERED: KETAMINE (DOSE) ONE (08:05)
[2016-11-02] MEDS ORDERED: VERSED ONE ×2 (08:06→09:51)
[2016-11-02] MEDS ORDERED: MYLICON DROPS (DOSE) MISC ONE (08:55)
[2016-11-02] MEDS: ANTIVERT PO SCH ×2 (09:45→20:47)
[2016-11-02] MEDS: TEARISOL OPH SOLUTION OPH SCH (09:46)
[2016-11-02] MEDS: XANAX PO SCH ×2 (09:46→20:46)
[2016-11-02] MEDS: PROCARDIA PO SCH ×3 (09:47→17:43)
[2016-11-02] MEDS: PRILOSEC PO SCH (09:47)
[2016-11-02] MEDS: OSCAL 500 + D PO SCH (09:48)
[2016-11-02] MEDS: PERICOLACE PO SCH ×2 (09:48→20:46)
[2016-11-02] MEDS: LOPRESSOR PO SCH ×2 (09:49→20:47)
[2016-11-02] MEDS: NAMENDA XR PO SCH (09:49)
[2016-11-02] MEDS: FERROUS SULFATE PO SCH ×2 (09:50→20:47)
[2016-11-02] MEDS: FIBERCON PO SCH (09:50)
[2016-11-02] MEDS: CELEXA PO SCH (09:51)
[2016-11-02] MEDS: DIFLUCAN PO SCH (09:51)
[2016-11-02] MEDS: ASPIRIN EC PO SCH (09:51)
[2016-11-02] MEDS ORDERED: ANESTHESIA PB SET 88 IN 5742 ONE (09:57)
[2016-11-02] MEDS ORDERED: 1/2 NS 500 ML ONE (09:57)
[2016-11-02] MEDS ORDERED: AMIDATE ONE (09:57)
[2016-11-02] MEDS ORDERED: ROBINUL ONE (09:57)
[2016-11-02] MEDS ORDERED: XYLOCAINE-MPF 2% ONE (09:57)
[2016-11-02 10:14] LABS: MANUAL DIFF NEEDED? NO
[2016-11-02 10:19] LABS: BASO% 0.4 % (0.0-0.8); EOS# 0.16 X1000 (0.0-0.7); HEMOGLOBIN 9.9 g/dL (12.0-16.0); LYMPH# 0.69 X1000 (1.2-3.4); LYMPH% 12.9 % (20.5-51.1); MCH 27.8 PG (27-31); MCHC 31.9 g/dL (33-37); MCV 87.1 FL (81-99); MONO# 0.55 X1000 (0.11-0.59); MONO% 10.3 % (1.7-9.3); MPV 10.4 FL (7.4-10.4); NEUT% 73.4 % (42.2-75.2); PLT 184 X1000 (130-400); RBC 3.56 XMIL (4.2-5.4)
[2016-11-02] MEDS ORDERED: MISC. PHARMACY COMMUNICATION SCH (10:27)
[2016-11-02] MEDS: PROTONIX IV SCH ×4 (11:41→21:49)
[2016-11-02] MEDS: SODIUM CHLORIDE 0.9% INJ SCH ×2 (11:56→20:47)
--- NOTE | 2016-11-02 12:40 | PROGRESS NOTE ---
DATE: 11/02/2016 SUBJECTIVE: She is sleeping. She just had her EGD and apparently had esophageal dilatation, and she appears comfortable, breathing comfortably. Sitter was at the bedside. OBJECTIVE: Temperature 98.4 degrees, pulse 94, respirations 16, blood pressure 130/62. Pupils were equal and round. CVP less than 6 cm. Lungs are clear in all lung jenkins. Cardiovascular: Regular rhythm and rate without murmur or S3. Urine output was 1800 mL. LABORATORY: White count 5330, hematocrit 31, platelet count 184,000. Sodium 140, potassium 2.7, chloride 104, bicarb 21. BUN 9, creatinine 1.4. Magnesium was 1.7. ASSESSMENT AND PLAN: 1. Dysphagia. Trouble with swallowing. Aspiration. Esophagogastroduodenoscopy done with esophageal dilatation. 2. Underlying dementia. She has been stable. 3. History of coronary artery disease. 4. Hypertension. 5. Sick sinus syndrome, status post pacemaker. 6. Mitral regurgitation. 7. Cricopharyngeal achalasia, torturous esophagus, Schatzki's ring. Luminal narrowing and a high large hiatal hernia. Just finished esophagogastroduodenoscopy. I am going to supplement potassium IV.
[2016-11-02] MEDS: POTASSIUM CHLORIDE 20 MEQ/SWI 100 ML IV SCH ×2 (15:07→16:22)
--- NOTE | 2016-11-02 19:57 | OPERATIVE NOTE ---
PROCEDURE DATE: 11/02/2016 REFERRING PHYSICIAN: Carlos Macedo M.D. PRIMARY CARE PHYSICIAN: Johnny Eason M.D. INDICATION FOR PROCEDURE: 1. Dysphagia. 2. Cricopharyngeal achalasia on swallow study. 3. Known Schatzki ring. 4. Possible aspiration. PROCEDURE PERFORMED: Esophagogastroduodenoscopy with dilation. CONSENT: Informed consent was obtained from the patient and her daughter prior to the procedure. The risks, benefits, and alternatives were discussed. MEDICATIONS: The patient received monitored anesthesia care. PERFORMING PHYSICIAN: Lana Guerrero M.D. ASSISTANTS: 1. ST. Jose E 2. Maria Antonia Mckenna RN. 3. Corine Camargo CRNA. 4. Gabriel Nguyen M.D. (anesthesia). COMPLICATIONS: There was mild bleeding at the lower esophageal sphincter postdilation. Hemostasis was achieved with black wire cautery. ESTIMATED BLOOD LOSS: 2-3 mL. SPECIMENS REMOVED: None. FINDINGS: After sedation was achieved, the upper endoscope was inserted to the 2nd portion of the duodenum. The hypopharynx appeared normal. There was moderate resistance at the upper esophageal sphincter with insertion of the scope. This finding was consistent with her modified barium swallow which showed cricopharyngeal achalasia. The tubular esophagus was normal. In the distal esophagus, there was a Schatzki ring at the GE junction which was measured at 35 cm from the incisors. There was a hiatal hernia that spanned from 35-41 cm. In the gastric lumen, there was atrophic gastritis. The pylorus appeared endoscopically normal. The duodenum was also endoscopically normal. After the exam was complete, the scope was retracted into the gastric lumen. The guidewire was placed through the scope and the scope was removed. A 45-Bahamian and a 48-Bahamian Savary dilator were passed over the guidewire 1 time each with successful dilation. There was a moderate amount of heme at the lower esophageal sphincter that required black wire cautery for hemostasis. There was a small amount of heme but no active bleeding at the upper esophageal sphincter. These findings were consistent with successful dilation of both the upper and lower esophageal sphincter on 2nd look endoscopy. It should be noted that there was marked decreased resistance with passage on the scope on 2nd look endoscopy. After the exam was complete, the lumen was decompressed and the scope was removed without incident. IMPRESSION: 1. Cricopharyngeal achalasia status post dilation. 2. Tortuous esophagus. 3. Schatzki ring status post dilation. 4. Hiatal hernia. 5. Atrophic gastritis. RECOMMENDATION: 1. Will have the patient remain NPO for 4 hours and then begin a clear liquid diet. If she tolerates a clear liquid diet, I will advance her to a mechanical soft over the next 24-48 hours. 2. Continue Protonix 40 mg IV q.12 hours. 3. Will hold her blood thinners for 7 days in light of the bleeding. After 7 days, she may resume her Plavix and other anticoagulants. 4. Will repeat an EGD only on as-needed basis given her age and comorbidities. cc: Johnny Eason MD MTDD
[2016-11-02] MEDS: VANCOMYCIN 1 GM/NS 250 ML IV SCH (20:45)
[2016-11-02] MEDS: SEROQUEL XR PO SCH (20:47)
[2016-11-03] MEDS: DUONEB (A & A) INH SCH ×5 (03:15→19:50)
[2016-11-03] MEDS: ZOSYN 3.375 GM/NS 50 ML IV SCH ×3 (05:05→18:00)
[2016-11-03] MEDS: PERICOLACE PO SCH ×2 (09:00→23:06)
[2016-11-03] MEDS: D5W 1,000 ML IV SCH (09:00)
[2016-11-03] MEDS: XANAX PO SCH ×2 (09:00→21:36)
[2016-11-03] MEDS: TEARISOL OPH SOLUTION OPH SCH (09:00)
[2016-11-03] MEDS: FERROUS SULFATE PO SCH ×2 (09:00→21:36)
[2016-11-03] MEDS: ANTIVERT PO SCH ×2 (09:00→21:36)
[2016-11-03] MEDS: CELEXA PO SCH (09:00)
[2016-11-03] MEDS: OSCAL 500 + D PO SCH (09:00)
[2016-11-03] MEDS: DIFLUCAN PO SCH (09:00)
[2016-11-03] MEDS: PROCARDIA PO SCH ×3 (09:00→17:00)
[2016-11-03] MEDS: FIBERCON PO SCH (09:10)
[2016-11-03] MEDS: NAMENDA XR PO SCH (09:10)
[2016-11-03] MEDS: LOPRESSOR PO SCH ×2 (09:10→21:36)
[2016-11-03] MEDS: PROTONIX IV SCH ×2 (10:00→21:36)
--- NOTE | 2016-11-03 14:19 | PROGRESS NOTE ---
DATE: 11/03/2016 SUBJECTIVE: Mr. Zuleta is seen on 11/03/2016 admitted for pneumonia and congestive heart failure. Found she had significant dysphagia and underwent an EGD, found antral gastritis, Schatzki's ring, distal lower esophagus stricture and Dr. Guerrero was able to dilate this. Advance her diet as tolerated. I think liquids today and then maybe a soft diet tomorrow. Hopefully can go home on Saturday. OBJECTIVE: Vital Signs: Stable, oral nasal mucosa unremarkable. She appears in no distress. Breathing comfortably. Lungs: Clear in all lung jenkins. Cardiovascular: Regular rhythm and rate without murmur or S3. Abdomen: Soft. Skin is warm and dry. ASSESSMENT AND PLAN: 1. Pneumonia and pulmonary venous hypertension. Markedly improved. Good air and gas exchange. 2. Oropharyngeal and esophageal dysphagia status post EGD with dilatation, found Schatzki's ring, antral gastritis, distal esophageal stricture and torturous esophagus and had dilatation of the distal esophagus as well. Advance diet as we can. 3. Dementia. Stable. 4. General weakness and deconditioning. We will give her what physical therapy she can cooperate with. cc: Carlos Macedo MD
[2016-11-03 17:29] LABS: AGAP 13; BUN 8 mg/dL (8-22); CALCIUM 8.1 mg/dL (8.8-10.2); CHLORIDE 107 mmol/L (98-107); COSMO 280; POTASSIUM 2.9 mmol/L (3.5-5.1); SODIUM 141 mmol/L (136-145); TCO2 21 mmol/L (25-35)
[2016-11-03] MEDS: VANCOMYCIN 1 GM/NS 250 ML IV SCH (21:36)
[2016-11-03] MEDS: SEROQUEL XR PO SCH (21:36)
[2016-11-04] MEDS: DUONEB (A & A) INH SCH ×7 (00:10→22:52)
[2016-11-04] MEDS: ZOSYN 3.375 GM/NS 50 ML IV SCH ×4 (05:34→17:30)
[2016-11-04] MEDS: D5W 1,000 ML IV SCH ×2 (05:36)
[2016-11-04] MEDS: DIFLUCAN PO SCH (10:28)
[2016-11-04] MEDS: PROCARDIA PO SCH ×3 (10:29→17:30)
[2016-11-04] MEDS: PERICOLACE PO SCH ×2 (10:29→21:20)
[2016-11-04] MEDS: NAMENDA XR PO SCH (10:30)
[2016-11-04] MEDS: ANTIVERT PO SCH ×2 (10:31→21:20)
[2016-11-04] MEDS: FERROUS SULFATE PO SCH ×2 (10:31→21:20)
[2016-11-04] MEDS: CELEXA PO SCH (10:32)
[2016-11-04] MEDS: FIBERCON PO SCH (10:32)
[2016-11-04] MEDS: OSCAL 500 + D PO SCH (10:33)
[2016-11-04] MEDS: XANAX PO SCH ×2 (10:35→21:20)
[2016-11-04] MEDS: LOPRESSOR PO SCH ×2 (10:39→21:20)
[2016-11-04] MEDS: TEARISOL OPH SOLUTION OPH SCH (10:42)
[2016-11-04] MEDS: PROTONIX IV SCH ×2 (10:42→21:20)
[2016-11-04] MEDS: SODIUM CHLORIDE 0.9% INJ SCH ×2 (10:43→21:20)
--- NOTE | 2016-11-04 12:04 | PROGRESS NOTE ---
DATE: 11/04/2016 SUBJECTIVE: Ms. Zuleta is comfortable. She had a good night. She is eating. She is requesting a grilled cheese sandwich this morning. Breathing comfortably. OBJECTIVE: Vital Signs: Afebrile. Temperature 99.1 degrees, pulse 87, respirations 15, blood pressure 124/60. Lungs: Clear in all lung jenkins. Cardiovascular: Regular rhythm and rate without murmur or S3. Abdomen: Soft. Skin: Warm and dry. LABORATORY DATA: No new labs. Reviewed labs from yesterday, potassium a little low. Magnesium was okay. ASSESSMENT AND PLAN: 1. Dysphagia, oropharyngeal and esophageal dysphagia. She has had an EGD, found Schatzki's ring, antral gastritis and distal esophageal stricture with dilatation. She seems to be doing well. Advance diet. She have a soft GI diet today. 2. Dementia. Stable. 3. General weakness and deconditioning. Continue physical therapy. Hope to send her home tomorrow. 4. She is on vancomycin and . Her chest x-ray on the 30 improvement in infiltrates and atelectasis. We will check a chest x-ray again today, and hopefully we can stop her antibiotics. cc: Carlos Macedo MD
--- NOTE | 2016-11-04 13:02 | Diag Imaging Result Document ---
PROCEDURE NAME: CHEST-PORTABLE - 11/04/2016 PORTABLE CHEST: FINDINGS: Compared to 11/01/2016. There is stable mild cardiomegaly. There is an air-containing retrocardiac density compatible with hiatal hernia. There is subsegmental atelectasis and apparent small pleural effusion at the left base. There is no discrete consolidation, vascular congestion, or pneumothorax identified. IMPRESSION: 1. Stable mild cardiomegaly. 2. Hiatal hernia. 3. Left basilar subsegmental atelectasis and apparent small left pleural effusion. 4. No discrete pneumonia.
[2016-11-04] MEDS: VANCOMYCIN 1 GM/NS 250 ML IV SCH (21:09)
[2016-11-04] MEDS: SEROQUEL XR PO SCH (21:20)
[2016-11-05] MEDS ORDERED: CALMOSEPTINE OINTMENT TOP PRN (01:35)
[2016-11-05] MEDS: DUONEB (A & A) INH SCH ×6 (03:10→23:36)
[2016-11-05] MEDS: D5W 1,000 ML IV SCH ×2 (03:28→22:00)
[2016-11-05] MEDS: ZOSYN 3.375 GM/NS 50 ML IV SCH ×2 (03:33→08:52)
[2016-11-05] MEDS: PROTONIX IV SCH ×4 (03:34→21:51)
[2016-11-05] MEDS: NAMENDA XR PO SCH (08:52)
[2016-11-05] MEDS: FIBERCON PO SCH (08:53)
[2016-11-05] MEDS: DIFLUCAN PO SCH (08:53)
[2016-11-05] MEDS: ANTIVERT PO SCH ×3 (08:53→21:59)
[2016-11-05] MEDS: LOPRESSOR PO SCH ×2 (08:53→21:51)
[2016-11-05] MEDS: FERROUS SULFATE PO SCH ×3 (08:53→22:00)
[2016-11-05] MEDS: PERICOLACE PO SCH ×4 (08:53→22:00)
[2016-11-05] MEDS: TEARISOL OPH SOLUTION OPH SCH (08:53)
[2016-11-05] MEDS: PROCARDIA PO SCH ×3 (08:53→16:09)
[2016-11-05] MEDS: CELEXA PO SCH (08:53)
[2016-11-05] MEDS: OSCAL 500 + D PO SCH (08:57)
[2016-11-05] MEDS: XANAX PO SCH ×2 (09:02→21:51)
[2016-11-05] MEDS: SODIUM CHLORIDE 0.9% INJ SCH (09:03)
[2016-11-05] MEDS ORDERED: DUONEB (A & A) INH ONE (19:29)
[2016-11-05] MEDS ORDERED: SODIUM CHLORIDE 0.9% INJ PRN ×2 (19:33→21:02)
[2016-11-05] MEDS ORDERED: PHENERGAN IV PRN (19:33)
[2016-11-05] MEDS ORDERED: SOLU-MEDROL IV ONE (19:51)
[2016-11-05 19:55] LABS: ALLEN TEST YES; BE -9.1 mmoll (-3.0-3.0); BLOOD TYPE ARTERIAL; DRAW SITE R RADIAL; METHB 1.5 % (0.0-1.5); O2(CT) 13.3 mL/dL (15.0-23.0); PCO2(98.6) 31 mmHg (35-45); PO2(98.6) 64 mmHg (60-100); SAMPLE BLOOD; SAO2 95.4 % (95.0-100.0); THB 10.3 g/dL (11.5-17.4); pH(98.6) 7.32 (7.35-7.45)
[2016-11-05 20:05] LABS: MANUAL DIFF NEEDED? NO
[2016-11-05 20:14] LABS: MODALITY CANNULA
[2016-11-05 20:20] LABS: URINE CULTURE NEEDED? NO; URINE MICRO REVIEW NEEDED? NO; URINE SOURCE CATH
[2016-11-05 20:26] LABS: EOS# 0.31 X1000 (0.0-0.7); EOS% 3.3 % (0.0-10.0); HEMATOCRIT 33.9 % (37.0-47.0); IMM GRAN# 0.05 X1000 (0.0-0.04); IMM GRAN% 0.5 % (0.0-0.5); LYMPH# 1.71 X1000 (1.2-3.4); LYMPH% 18.5 % (20.5-51.1); MCH 27.7 PG (27-31); MCHC 32.4 g/dL (33-37); MCV 85.4 FL (81-99); MONO# 0.75 X1000 (0.11-0.59); MONO% 8.1 % (1.7-9.3); MPV 10.7 FL (7.4-10.4); NEUT% 68.6 % (42.2-75.2); PLT 362 X1000 (130-400); RBC 3.97 XMIL (4.2-5.4)
[2016-11-05 20:41] LABS: UR EPITHELIAL CELLS <10 /HPF (<10); URINE BACTERIA NEGATIVE /HPF; URINE RBC <10 /HPF (<10); URINE WBC <10 /HPF (<10)
[2016-11-05 20:49] LABS: BILIRUBIN URINE NEGATIVE (NEGATIVE); BLOOD URINE NEGATIVE (NEGATIVE); COLOR YELLOW; GLUCOSE URINE NEGATIVE (NEGATIVE); LEUKOCYTES URINE NEGATIVE (NEGATIVE); NITRITE URINE NEGATIVE (NEGATIVE); PH URINE 5.5; PROTEIN URINE NEGATIVE (NEGATIVE); SP GRAVITY URINE 1.011; TURBIDITY URINE CLEAR (CLEAR); UROBILINOGEN URINE NORMAL (NORMAL)
[2016-11-05 20:51] LABS: CALCIUM 8.9 mg/dL (8.8-10.2); POTASSIUM 2.9 mmol/L (3.5-5.1)
[2016-11-05] MEDS ORDERED: ZOSYN 3.375 GM/NS 3.375 GM/50 ML IVPB IV ONE (21:02)
[2016-11-05] MEDS: SEROQUEL XR PO SCH (21:51)
[2016-11-06] MEDS: DUONEB (A & A) INH SCH ×6 (03:45→23:00)
[2016-11-06] MEDS: ZOSYN 2.25 GM/NS 2.25 GM/50 ML IVPB IV SCH ×4 (05:10→23:46)
[2016-11-06 05:19] LABS: ALLEN TEST YES; BE -4.3 mmoll (-3.0-3.0); BLOOD TYPE ARTERIAL; DRAW SITE R RADIAL; METHB 1.3 % (0.0-1.5); O2(CT) 13.8 mL/dL (15.0-23.0); PCO2(98.6) 32 mmHg (35-45); PO2(98.6) 119 mmHg (60-100); SAMPLE BLOOD; SAO2 100.9 % (95.0-100.0); THB 9.9 g/dL (11.5-17.4)
[2016-11-06 05:21] LABS: MODALITY BI PAP
--- NOTE | 2016-11-06 05:24 | EKG Report ---
Test Performed on : 11/05/2016 7:46:17 PM Test Reason : cat call Blood Pressure : / mmHG Vent. Rate : 071 BPM Atrial Rate : 058 BPM P-R Int : 000 ms QRS Dur : 150 ms QT Int : 472 ms P-R-T Axes : 000 248 024 degrees QTc Int : 512 ms Ventricular-paced rhythm Abnormal ECG When compared with ECG of 27-OCT-2016 13:09, (Unconfirmed) Vent. rate has decreased BY 9 BPM Confirmed by Richie BARKER, Eduardo Chavarria ([id number]) on 11/07/2016 5:37:10 PM
--- NOTE | 2016-11-06 07:51 | Diag Imaging Result Document ---
PROCEDURE NAME: CHEST-PORTABLE - 11/06/2016 SINGLE FRONTAL RADIOGRAPH OF THE CHEST: COMPARISON: 11/05/2016. FINDINGS: There is suggestion of basilar small effusions with adjacent atelectasis and/or infiltrate that is essentially stable given differences in inspiration. No new consolidation is identified. Cardiac silhouette is stable. IMPRESSION: Stable chest.
--- NOTE | 2016-11-06 07:54 | Diag Imaging Result Document ---
PROCEDURE NAME: CHEST-PORTABLE - 11/05/2016 SINGLE FRONTAL RADIOGRAPH OF THE CHEST: COMPARISON: 11/04/2016. FINDINGS: Inspiration is suboptimal. There is suggestion of small pleural effusions, larger on the left, that are approximately stable. There is adjacent atelectasis and/or infiltrate that is essentially stable. Cardiac silhouette is unchanged. IMPRESSION: Stable chest.
--- NOTE | 2016-11-06 09:43 | Diag Imaging Result Document ---
PROCEDURE NAME: BA SWALLOW-ESOPHAGUS - 11/06/2016 BARIUM SWALLOW ESOPHAGUS: FLUOROSCOPY TIME: 2 minute 25 seconds. RADIATION DOSE: 1939.9 cGy cm2. FINDINGS: Exam performed using water-soluble contrast per request of the referring provider. The patient was only able to drink small quantities of the contrast at a slow rate through a straw. The swallowed contrast passes rapidly from the esophagus into the proximal stomach (hiatal hernia). There is no esophageal stricture identified. There is no contrast extravasation from the esophagus identified. There are some tertiary contractions of the esophagus noted. Most of the swallowed contrast remains in the hiatal hernia during the exam, rather than passing into the more-distal stomach. IMPRESSION: Somewhat limited exam, the patient is able to drink only small quantities of the contrast at a relatively slow rate. There is no esophageal stricture identified. There is no contrast extravasation from the esophagus identified. Most of the swallowed contrast appeared to remain in the hiatal hernia during the exam, rather than passing into the more- distal stomach. MTDD
[2016-11-06] MEDS: CELEXA PO SCH (10:14)
[2016-11-06] MEDS: PERICOLACE PO SCH ×2 (10:14→20:35)
[2016-11-06] MEDS: LOPRESSOR PO SCH ×2 (10:14→20:35)
[2016-11-06] MEDS: ANTIVERT PO SCH ×2 (10:14→20:35)
[2016-11-06] MEDS: NAMENDA XR PO SCH (10:15)
[2016-11-06] MEDS: FERROUS SULFATE PO SCH ×2 (10:15→20:35)
[2016-11-06] MEDS: PROCARDIA PO SCH ×3 (10:15→20:35)
[2016-11-06] MEDS: DIFLUCAN PO SCH (10:15)
[2016-11-06] MEDS: TEARISOL OPH SOLUTION OPH SCH (10:15)
[2016-11-06] MEDS: XANAX PO SCH ×2 (10:36→20:35)
[2016-11-06] MEDS: OSCAL 500 + D PO SCH (10:40)
[2016-11-06] MEDS: FIBERCON PO SCH (10:40)
[2016-11-06 10:55] LABS: ALLEN TEST YES; BE -7.9 mmoll (-3.0-3.0); BLOOD TYPE ARTERIAL; DRAW SITE R RADIAL; METHB 1.7 % (0.0-1.5); O2(CT) 14.8 mL/dL (15.0-23.0); PCO2(98.6) 27 mmHg (35-45); PO2(98.6) 114 mmHg (60-100); SAMPLE BLOOD; SAO2 99.2 % (95.0-100.0); THB 10.8 g/dL (11.5-17.4); pH(98.6) 7.38 (7.35-7.45)
[2016-11-06 10:57] LABS: MODALITY BI PAP
[2016-11-06] MEDS ORDERED: SODIUM CHLORIDE 0.9% 10 ML ONE (11:14)
[2016-11-06] MEDS: PROTONIX IV SCH ×2 (11:16→23:43)
[2016-11-06] MEDS: SODIUM CHLORIDE 0.9% INJ SCH ×2 (11:16→23:43)
--- NOTE | 2016-11-06 12:49 | PROGRESS NOTE ---
DATE: 11/06/2016 This morning, Ms. Zuleta was in [facility]. I understand she got transferred yesterday because of some vomiting and shortness of breath presumably from aspiration. This morning she also did have some congestion on the lungs and was having some difficulty breathing and had to be put back on the CPAP. OBJECTIVE: Vital signs: Blood pressure is 117/72, pulse of 107, respirations 31, temperature is 97.0 degrees. General: Ms. Zuleta is an 86-year-old female. She was in bed. Seems to be in mild respiratory distress. HEENT: Mucosa is pink and moist. Anicteric. Acyanotic. Neck: Supple. Chest: Air entry is bilaterally reduced. There are diffuse bilateral crepitations. Cardiovascular: Regular rate and rhythm. No murmurs, no rubs. No gallops. Abdomen: Soft, nontender. Extremities: No pedal edema. 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 [employer]GER: Patient is drowsy but easily arousable. ASSESSMENT: 1. Acute hypoxemic respiratory failure. Patient continues to have this intermittent hypoxemia especially following vomit which is suspicious of aspiration. She continues to be on antibiotics. The patient had an evaluation by modified swallow and there was minimal aspiration and cricopharyngeal achalasia. Some recommendations were made in terms of the feeding however I still think that patient has continued to have significant aspirations even with the recommended consistence of feeding. An order has been put in to re- evaluate her for swallow evaluation. 2. Esophageal spasm with achalasia on EGD. This put the patient on major aspiration risks. She does not seem to have any improvement. 3. Satinsky's ring with esophageal stenosis status post dilatation. 4. Dementia. 5. Generalized weakness and deconditioning. 6. Poor prognosis. 7. Acute on chronic CKD which seems to be worsening however patient has adequate urine output. So in general Ms. Zuleta is an 86-year-old, has been in hospital for about 10 days initially because of aspiration pneumonia. Patient still continues to have aspiration. She is status post esophagogastroduodenoscopy and esophageal dilation and she continues to have signs of aspiration. I think this is just normal progression of aging and not withstanding whatever we do she is still going to have this problem. I spoke with the daughter about the poor prognosis of Ms. Zuleta since she does not seem to have improved in any remarkable way from the aspiration or withstand whatever we do. I did discuss the possibility of a PEG tube however, this will also predispose her to the same aspiration risk. We also discussed the possibility of J-tube but of which she will need to undergo anesthesia and the family does not want to go that route. We do not have any objective way of feeding her then except taking the risk of having her on aspirations. The family is going to have a meeting and discuss about that. For now they recommend that we will consult hospice/ palliative for them to see what are the options that they will be able to offer them. cc: Shine Clifford MD MTDD
[2016-11-06] MEDS ORDERED: MORPHINE IV PRN (13:51)
--- NOTE | 2016-11-06 17:59 | PALLIATIVE CARE CONSULTATION ---
DATE: 11/06/2016 REQUESTING PHYSICIAN: Dr. Clifford. REASON FOR CONSULTATION: Goals of care. HISTORY OF PRESENT ILLNESS: This is an 86-year-old female with a past medical history of coronary artery disease, dementia, sick sinus syndrome status post pacemaker, hypertension, hyperlipidemia, gastroesophageal reflux disease and mitral regurgitation. She was most recently admitted on 10/27/2016 after presenting to the ED with complaints of increasing shortness of breath, wheezing and coughing and it is also reported that the home health nurse measured an axillary temperature of a 102 degrees Fahrenheit. The daughter is at the bedside states that approximately 1 month ago she had a choking episode that required an EGD performed by Dr. Guerrero. She states that since that event Ms. Zuleta has not done very well with increasing shortness of breath, coughing and wheezing. While in the ED labs revealed an elevated white cell count. She was also found to be mildly anemic as well as renal insufficient and she had an elevated troponin and proBNP. Chest x-ray revealed bilateral infiltrates consistent with pulmonary edema. Therefore she was admitted for further evaluation and treatment. Since admission she has been transferred to the CICU presumably for an episode of sudden short of breath following an episode of vomiting. Currently she is lying in hospital bed. She is asleep and does not appear to be in any acute distress. She will arouse to verbal and tactile stimulation. She is oriented to person and place. She denies pain. She denies shortness of breath. She also denies nausea. She is able to squeeze my hand on command. The daughter reports that she is legally blind and significantly hearing impaired. The palliative care team has been consulted to assist with goals of care. REVIEW OF SYSTEMS: Twelve point review of system has been conducted and otherwise negative except those mentioned in the HPI. PAST MEDICAL HISTORY: See HPI. PAST SURGICAL HISTORY: 1. Pacemaker placement. 2. Right breast lumpectomy. 3. Hysterectomy. 4. Cholecystectomy. 5. CABG. SOCIAL HISTORY: Prior to this admission she lived at home with her daughter. She does have a hired sitter to help with her activities of daily living. She is dependent to 5/6 activities of daily living. Her daughter reports that she is able to feed herself. She was with [facility] to this admission. Alcohol, tobacco and drug use have been denied. FAMILY HISTORY: None pertinent. PHYSICAL EXAM: General: This is an 86-year-old elderly female who is resting in the hospital bed and does not appear to be in any acute distress. HEENT: Atraumatic, normocephalic. Neck: Supple. Cardiovascular: Regular rate and rhythm. Pulmonary: Lung sounds are diminished. Respirations are nonlabored. Abdomen: Soft. Bowel sounds are active. Extremities: Pulses are palpable. Neuro: Ms. Zuleta is easily arousable, alert and oriented times person and place. IMPRESSION: This is a 86-year-old female with a past medical history as listed above in the history of present illness. Dr. Clifford has consulted the palliative care team to speak with the family regarding goals of care. Since admission Ms Zuleta has underwent an EGD with esophageal dilation however she continues to show signs of aspiration. The daughter does report an overall decline with Ms. Zuleta in the last couple of months with increasing sleep and requiring assistance with all of her activities of daily living. The possibility of a PEG tube placement has been mentioned to the daughter and she had questions regarding that. She also had questions regarding not electing to have the PEG tube placed and going home with hospice services. Home hospice services were explained to Ms Zuleta' daughter, Ms. Zuleta also has a son who is involved in her care however he is out of town with business at this time. Plan for him is return tomorrow. The sister would like to speak with him about the possible options before any decision is made. Ms Zuleta' daughter feels like that the risk is too great for Ms. Zuleta to undergo any other procedure. Currently Ms. Zuleta is a full code. I have offered to meet with Ms Zuleta' daughter and son to continue the conversation of goals of care. I will follow Ms. Zuleta daily. It appears that her palliative performance scale is 30%. Thank you for this consultation. Dictated by RUBIN Armstrong for Viktor Roque MD cc: RUBIN Armstrong MD
[2016-11-06] MEDS: D5W 1,000 ML IV SCH (20:33)
[2016-11-06] MEDS: SEROQUEL XR PO SCH (20:35)
[2016-11-07] MEDS: DUONEB (A & A) INH SCH ×6 (02:50→22:32)
[2016-11-07] MEDS: SODIUM CHLORIDE 0.9% INJ SCH ×3 (04:30→21:42)
[2016-11-07] MEDS: PHENERGAN IV PRN ×2 (04:30→21:05)
[2016-11-07] MEDS ORDERED: NS 500 ML IV ONE (05:02)
[2016-11-07] MEDS: ZOSYN 2.25 GM/NS 2.25 GM/50 ML IVPB IV SCH ×3 (05:07→17:40)
[2016-11-07 05:42] LABS: MANUAL DIFF NEEDED? NO
[2016-11-07 05:48] LABS: BASO% 0.3 % (0.0-0.8); EOS# 0.12 X1000 (0.0-0.7); EOS% 0.8 % (0.0-10.0); HEMATOCRIT 30.4 % (37.0-47.0); HEMOGLOBIN 9.8 g/dL (12.0-16.0); IMM GRAN# 0.07 X1000 (0.0-0.04); IMM GRAN% 0.4 % (0.0-0.5); LYMPH# 1.17 X1000 (1.2-3.4); LYMPH% 7.4 % (20.5-51.1); MCH 27.4 PG (27-31); MCHC 32.2 g/dL (33-37); MCV 84.9 FL (81-99); MONO# 1.26 X1000 (0.11-0.59); MPV 11.2 FL (7.4-10.4); NEUT% 83.1 % (42.2-75.2); PLT 324 X1000 (130-400); RBC 3.58 XMIL (4.2-5.4)
[2016-11-07 07:03] LABS: CALCIUM 8.5 mg/dL (8.8-10.2); POTASSIUM 2.5 mmol/L (3.5-5.1)
[2016-11-07] MEDS: POTASSIUM CHLORIDE 20 MEQ/SWI 20 MEQ/100 ML IVPB IV SCH ×2 (08:21→18:44)
--- NOTE | 2016-11-07 10:39 | PROGRESS NOTE ---
DATE: 11/07/2016 SUBJECTIVE: Today, Ms. Zuleta remains very minimally communicative. She is just drowsy and sleepy and is not able to give any interval history. However, according to the caregiver, the patient rested very well last night. I understand last night she did develop episodes of having some shortness of breath and they had to put her back on the BiPAP. OBJECTIVE: Vitals: Blood pressure is 88/49. Patient has pretty much remained hypotensive since yesterday. She was given 500 mL of normal saline which did not really improve urine output. Pulse is 87, respirations 16, temperature 97.7. General: Ms. Zuleta is an 86-year-old, female. She is in bed. She is minimally responsive. She would, however, open her eyes to very painful stimulation. Chest: Air entry is bilaterally reduced. There are a few bibasilar end- expiratory coarse crackles. Cardiovascular: Regular rate and rhythm. There is a TR murmur of about 2/6, and there is an old sternotomy scar on the anterior chest wall and a left side anterior chest generator pocket for a pacemaker. Abdomen: Soft, nontender. Mildly distended. Extremities: No pedal edema, except that there is mild edema on the thigh and also on the upper extremities. Central nervous system: Patient is drowsy, sleepy, and will only open eyes to painful stimulation of the chest. She is, however, able to move extremities spontaneously, but does not seem to follow any commands. DIAGNOSTIC STUDIES: A barium swallow that was done yesterday did show no esophageal stricture. No extravasation of contrast from the esophagus. But most of the swallowed contrast appeared to remain in the hiatal hernia rather than passing into the more distal stomach. LABORATORY DATA: WBC is 15.80, hemoglobin is 9.8, platelet count is 324. Chemistry: Sodium is 133, potassium is 2.5, bicarb is 95, chloride is 17, and gap is 21, creatinine is 3.9. ASSESSMENT AND PLAN: 1. Acute hypoxemic respiratory failure. This seems to have been the main reason why the patient came into the hospital. We suspect there might be underlying aspiration pneumonia. The patient is currently on Zosyn and I think patient was also on vancomycin at one point, but this has been discontinued. 2. Esophageal spasm with achalasia on the EGD. 3. Schatzki's ring with esophageal stenosis, status post dilatation. 4. Acute on chronic kidney disease. The creatinine keeps getting worse. I think this is probably due to hypoperfusion, since patient went hypotensive. All the blood pressure medications have been discontinued. I think this is probably acute tubular necrosis. Patient is making very minimal urine. We are going to consult Nephrology to evaluate the patient and give us some recommendations. We are also going to start hydrating the patient. We sent a urine sodium and creatinine to check for the FENa, and also urine eosinophils and urine nitrogen. We will also do a renal ultrasound to rule out any obstructive uropathy. 5. High anion gap metabolic acidosis. We are going to do the workup which will include serum salicylates, Tylenol, acetone and lactic acid. We will give the patient gentle hydration with D5 bicarb until patient gets to be seen by Nephrology. 6. Electrolyte abnormality including hypokalemia. We will replace this. 7. Hiatal hernia. I think this seems to be retaining most of what patient eats and occasionally she will regurgitate and cause some aspirations. We will ask Surgery to evaluate the patient. I do not think anything can be done at this point, but I believe they will be able to follow the patient and intervene if necessary. cc: Shine Clifford MD
[2016-11-07 11:10] LABS: ACETAMINOPHEN < 1.2 ug/mL (10-30)
[2016-11-07 11:39] LABS: UR SODIUM 11 mmoll
[2016-11-07 11:41] LABS: ALLEN TEST YES; BE -6.2 mmoll (-3.0-3.0); BLOOD TYPE ARTERIAL; DRAW SITE R RADIAL; METHB 1.6 % (0.0-1.5); O2(CT) 12.8 mL/dL (15.0-23.0); PCO2(98.6) 23 mmHg (35-45); PO2(98.6) 76 mmHg (60-100); SAMPLE BLOOD; SAO2 97.4 % (95.0-100.0); THB 9.5 g/dL (11.5-17.4); pH(98.6) 7.46 (7.35-7.45)
[2016-11-07 11:41] LABS: UR CREAT RANDOM 72.9 mg/dL (11-20); UR UREA NITROGEN RANDOM < 70 mg/dL
[2016-11-07 11:42] LABS: MODALITY BI PAP
--- NOTE | 2016-11-07 11:48 | CONSULTATION ---
DATE OF CONSULTATION: 11/07/2016 REQUESTING PHYSICIANS: Dr. Clifford REASON FOR CONSULT: Potential for surgical intervention for dysphagia. HISTORY OF PRESENT ILLNESS: This is an 86-year-old female with multiple medical comorbidities, initially presenting with shortness of breath and wheezing. Through the course of this hospitalization she developed dysphagia. She has had known cricopharyngeal achalasia and she has had foreign bodies removed because of this. She has progressively declined in her mental status. Has had very difficult time with taking any kind of p.o. intake. She had a upper GI that showed a hiatal hernia that is retaining most of the food. I was asked to weigh in for an opinion. The family is also deciding the potential for palliative care. PAST MEDICAL HISTORY: 1. Coronary artery disease. 2. Sick sinus syndrome. 3. Dementia. 4. Hypertension. 5. Mitral valve regurgitation. 6. Dysphagia. 7. Reported esophageal strictures. 8. Hiatal hernia. 9. Hyperlipidemia. 10. Gastroesophageal reflux disease. PAST SURGICAL HISTORY: 1. Coronary artery bypass. 2. Pacemaker implantation revision. 3. Right breast lumpectomy. 4. Hysterectomy. 5. Cholecystectomy. SOCIAL HISTORY: Lives at home with her daughter. FAMILY HISTORY: Noncontributory. ALLERGIES: Sulfa. HOME MEDICATIONS: Reviewed. It is of note that she is on Plavix. REVIEW OF SYSTEMS: Unobtainable secondary to patient's mental status. PHYSICAL EXAMINATION: Vital Signs: Patient is currently afebrile. Her vital signs have been stable. She is currently on BiPAP. General exam: No acute distress. Resting comfortably. Lethargic but follows commands. female, looks stated age. HEENT: Normocephalic, atraumatic. Pupils equal, round, reactive to light. Mucous membranes moist. Oropharynx benign. Neck: Supple. Trachea midline. Cardiovascular: Regular rate and rhythm. Lungs: Grossly clear. Abdomen: Soft, nontender, nondistended. Extremities: No obvious defects. Neurologic: Has baseline dementia. Vascular: All extremities perfused. LABORATORY: Reviewed. White blood cell count 15, hematocrit 30, platelet count 324,000. Remainder of labs reviewed. Of note, patient's potassium is 3.5. ASSESSMENT AND PLAN: This is an 86-year-old female with multiple medical comorbidities, now with dysphagia. 1. Acute hypoxic respiratory failure. At this time, patient is on BiPAP. Currently being managed by the hospitalist service. 2. Esophageal spasm with achalasia on EGD. There was an attempt at dilation. She does have a Schatzki's ring also. 3. Dysphagia. This is probably related to the above and her hiatal hernia. At this time suspect the patient is a poor surgical candidate for any kind of surgical intervention. At a minimum I would recommend potentially a feeding tube either open or endoscopic gastrostomy tube to palliate some of her symptoms and give her nutrition. But again, this would be a potential high risk given her other medical comorbidities. I discussed with the family this and they will come to a decision as a family if they want any surgical intervention. 4. Multiple medical comorbidities. At this time being evaluated by the hospitalist service. I will continue to follow. Again at this time, I would not recommend significantly invasive procedures on this patient. At a maximum I would potentially consider putting in a PEG tube but even this would be high risk. The family will decide as to what kind of surgical intervention they want. I appreciate the consult. cc: Elliot Zaragoza MD
[2016-11-07] MEDS: PROTONIX IV SCH ×2 (12:03→21:42)
[2016-11-07] MEDS: ZYVOX 600 MG/D5W 600 MG/300 ML IVPB IV SCH ×2 (12:03→21:42)
[2016-11-07] MEDS: SODIUM BICARBONATE 8.4% 150 MEQ in D5W 1,000 ML IV SCH ×3 (12:04→18:45)
[2016-11-07] MEDS ORDERED: ALBUMIN 25% IV ONE (14:52)
--- NOTE | 2016-11-07 15:07 | PROGRESS NOTE ---
DATE: 11/07/2016 This afternoon I went back. I spoke with the daughter of Ms. Zuleta about the poor prognosis of Ms. Zuleta and she did agreed that she has seen remarkable decline especially in her mentation over the course of her hospital stay. She also did mention that she spoke with her brother and they are both on the agreement of making her DNR level 1 and also sending her home and hospice. They are awaiting for hospice to come and talk to them today. Briefly on the lab work that we sent, the urine creatinine is 72.9. The sodium is 11. Urine nitrogen is less than 70. The FENa is 0.4 consistent with pre renal and the fraction excretion of BUN is 20.8. Both are consistent with prerenal disease. However the urine also had granular casts on October 27 which would go with possibility of ATN. So I think this is probably a combination of prerenal etiology that escalated into ATN which would just be a matter of time to know if the kidney is going to respond or not. She is getting a gentle hydration however we know she is also having some signs of fluid overload especially in the upper extremity so I think her effective intravascular volume is probably low. We will try and see if giving her a little bit of albumin will improve that for now. We will also be waiting as I said, for hospice to evaluate her and then will potentially be able to discharge her maybe tomorrow or the day after once all the arrangements have been done. cc: Shine Clifford MD
--- NOTE | 2016-11-07 17:04 | PALLIATIVE CARE PROGRESS NOTE ---
DATE: 11/07/2016 SUBJECTIVE: It does appear that Ms. Zuleta has had an overall decline since yesterday's visit. She is now requiring BiPAP. She does not arouse during my assessment. However, she does not appear uncomfortable. Her daughter is at the bedside. OBJECTIVE: General: This is an 86-year-old, female, who does not appear to be in any acute distress. HEENT: Atraumatic, normocephalic. Neck: Trachea is midline. Cardiovascular: Regular rate and rhythm. Pulmonary: Lung sounds are diminished. Clear. Respirations are not labored. Abdomen: Soft. Bowel sounds are active. Extremities: She does have some edema noted to her upper extremities. No edema noted to lower extremities. Pulses are palpable. Skin: Pale, warm and dry. ASSESSMENT AND PLAN: I met with Ms. Zuleta' daughter, Cassandra Olivo, to follow up on our conversation regarding goals of care. She states that she has spoken with her brother who remains out of town and they have decided that they would like to proceed with hospice services. Hospice consult order will be placed. We also discussed Ms. Zuleta' code status and the daughter has elected to make Ms. Zuleta a Do Not Resuscitate level 1. As previously mentioned, it does appear that Ms. Zuleta has had an overall decline since yesterday's visit, but she does appear comfortable at this time. The Palliative Care Team will continue to follow. Dictated by RUBIN Armstrong for Viktor Roque MD cc: RUBIN Armstrong MD
[2016-11-07] MEDS: TEARISOL OPH SOLUTION OPH SCH (18:44)
[2016-11-07] MEDS: SEROQUEL XR PO SCH (21:00)
[2016-11-08] MEDS: ZOSYN 2.25 GM/NS 2.25 GM/50 ML IVPB IV SCH ×3 (02:43→15:06)
[2016-11-08] MEDS: DUONEB (A & A) INH SCH ×4 (03:59→15:31)
[2016-11-08] MEDS: PHENERGAN IV PRN (05:19)
[2016-11-08] MEDS: SODIUM CHLORIDE 0.9% INJ SCH (05:20)
[2016-11-08] MEDS ORDERED: MORPHINE IV PRN (09:39)
[2016-11-08] MEDS ORDERED: ATIVAN IV PRN (09:40)
--- NOTE | 2016-11-08 10:04 | PROGRESS NOTE ---
DATE: 11/08/2016 SUBJECTIVE: Today, Ms. Zuleta continues to be the same, minimally responsive. OBJECTIVELY: Vital signs: Blood pressure is 101/52, pulse 97, respirations 22, temperature 96.9. General: Ms. Zuleta is an 86-year-old female. She was in bed. Was having some mild difficulty breathing, even under the BiPAP. HEENT: Mucosa is pink and moist. Anicteric. Acyanotic. Neck: Supple. Chest: Air entry is bilaterally reduced. There are some crepitations to the posterior lung jenkins. Cardiovascular: Regular rate and rhythm. Abdomen: Soft, distended, but nontender. SPECIAL EDUCATION ASSISTANT: Patient is minimally responsive, but would open her eyes to very painful stimulation and keeps grunting, suggestive that she probably is in pain. LABS: No lab work for today. Patient urine output was 135. ASSESSMENT: 1. Acute hypoxemic respiratory failure, likely secondary to aspiration pneumonia. The patient is currently on Zosyn and linezolid. 2. Esophageal spasm with achalasia on EGD. 3. Schatzki's ring with esophageal stenosis, status post dilatation. 4. Acute on chronic kidney disease likely due to acute tubular necrosis. 5. Hiatal hernia. 6. Poor prognosis. PLAN: Patient continues to show remarkable clinical deterioration. We are still pending hospice to evaluate the patient. For now, she continues to be DNR level 1. I will put her on p.r.n. morphine and Ativan to control some of her symptoms until hospice evaluation. I anticipate the patient being discharged today or tomorrow. That is if she remains stable. If she continues to deteriorate, I think she would qualify for inpatient hospice. cc: Shine Clifford MD
[2016-11-08] MEDS ORDERED: ROXANOL CONC. LIQUID PO PRN ×2 (10:35→13:00)
--- NOTE | 2016-11-08 10:39 | Diag Imaging Result Document ---
PROCEDURE NAME: US RENAL 2 (RETROPER) COMPLETE - 11/07/2016 RENAL ULTRASOUND: COMPARISON: None available. FINDINGS: The kidneys are grossly normal in echotexture with no discrete mass or hydronephrosis. The right kidney measures 8.8 cm in the left kidney measures 9.3 cm in the greatest longitudinal axes. The right renal cortex measures up to 8 mm and the left renal cortex measures up to 9 mm in thickness. There is a Hillman catheter in the urinary bladder and the bladder is completely nondistended. IMPRESSION: Essentially unremarkable renal ultrasound.
[2016-11-08] MEDS: TEARISOL OPH SOLUTION OPH SCH (13:43)
[2016-11-08] MEDS: PROTONIX IV SCH (13:43)
[2016-11-08] MEDS: ZYVOX 600 MG/D5W 600 MG/300 ML IVPB IV SCH (13:44)
[2016-11-08] MEDS: SODIUM BICARBONATE 8.4% 150 MEQ in D5W 1,000 ML IV SCH (15:05)
--- NOTE | 2016-11-08 15:18 | PALLIATIVE CARE PROGRESS NOTE ---
DATE: 11/08/2016 SUBJECTIVE: Ms. Zuleta is minimally responsive. She does appear to be in respiratory distress. Her respiratory rate is 40 breaths per minute. She does have the BiPAP in place. She does not show any other nonverbal signs of discomfort. OBJECTIVE: General: This is an 86-year-old, female, who is having some significant respiratory distress. HEENT: Atraumatic, normocephalic. Neck: Supple. Cardiovascular: Increased rate. Regular rhythm. Pulmonary: Lung sounds are greatly diminished , coarse. Respirations are labored. Abdomen: Soft. Extremities: She has upper extremity edema. Bilateral lower extremities reveal no edema. Pulses are palpable. Neuro: Ms. Zuleta is minimally responsive. ASSESSMENT AND PLAN: Cassandra Olivo, Ms. Zuleta' daughter is at the bedside and states that she has met with a public relations representative from hospice and is working to get all of her DME in place for discharge. Ms. Zuleta appears to be in respiratory distress with respiratory rate of 40 even under BiPAP. We are going to increase the frequency of her Roxanol to every 20 minutes as needed for air hunger. The disease and dying process was discussed with Ms. Zuleta' daughter and all questions were answered. It appears that Ms. Luevano palliative performance scale is 10%. She is a DNR level 1. The palliative care team will continue to follow. Dictated by RUBIN Armstrong for Viktor Roque MD cc: RUBIN Armstrong MD [facility]
[2016-11-08] MEDS ORDERED: ATIVAN PO PRN (15:44)
[2016-11-08 16:31] VITALS: BP 64/39
--- NOTE | 2016-11-09 02:36 | DISCHARGE SUMMARY ---
DATE: 11/08/2016 At about 1630 the patient was noted to have no respiratory effort and no response to painful stimuli or verbal stimulation. The patient has been deteriorating over the course of the day. Was evaluated by hospice and there was a plan to get her ready for outpatient hospice. But because her symptoms were deteriorating, she was pretty much on inpatient hospice. Upon arrival, the patient was nonresponsive. There was no respiratory effort. Pupils were completely dilated and nonreactive to light. There were no cranial nerve reflexes. There was no heart rate and no respiratory effort and no central pulses. The patient did not show any sign of vitality. Patient was subsequently pronounced at 1633. The daughter was at the bedside at the time of my evaluation and I did communicate clearly to her that Ms. Zuleta is and we offered every support that we could for her. All the nurses were and the social media assistant were all present. cc: Shine Clifford MD MTDD
--- NOTE | 2016-11-09 13:50 | DISCHARGE SUMMARY ---
ADMISSION DATE: 10/27/2016 DISCHARGE DATE: 11/08/2016 DATE OF : 11/06/2016 TIME OF : 1633 CONSULTATION DURING THIS ADMISSION: 1. GI was consulted. Patient was seen by Dr. Guerrero. 2. Surgery was consulted. Patient was seen by Dr. Zaragoza. 3. Palliative Medicine was consulted and also hospice was consulted. ADMISSION DIAGNOSES: 1. Dyspnea likely due to aspiration pneumonia as well as heart failure. 2. Aspiration pneumonia. 3. History of congestive heart failure. 4. Coronary artery disease. 5. Dementia. DIAGNOSES AT THE TIME OF : 1. Acute hypoxemic respiratory failure secondary to aspiration pneumonia. 2. Esophageal spasm with achalasia. 3. Schatzki ring with esophageal stenosis status post dilatation. 4. Acute on chronic kidney disease likely due to acute tubular necrosis. 5. Hiatal hernia. 6. 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 7. Hospice. PRESENTING COMPLAINT: Shortness of breath and wheezing. HISTORY OF PRESENTING COMPLAINT: Ms Zuleta is an 86-year-old female with a history of coronary artery disease, sick sinus syndrome status post pacemaker, hypertension , dementia, who presented to the emergency department because of shortness of breath. Of note, patient had come to the emergency department about a month ago and was found to have choked and Dr. Guerrero did EGD and food particles were removed. On this occasion patient was evaluated in the emergency room. A chest x-ray did show cardiomegaly, pulmonary edema and pleural effusions. A CT scan of the chest was done subsequently which showed left lower lobe infiltrate/pneumonia, small infiltrate in the right upper lobe, severe cardiomegaly, severe chronic bronchitis. Patient was admitted with antibiotics for further medical management. HOSPITAL COURSE: The patient was initially admitted to medical floor. GI was consulted. Patient was seen by Dr. Guerrero. Somewhere along the line EGD was done. Patient was found to have Schatzki ring with some esophageal stenosis. This was dilated. However her swallowing did not really improve that much. She continued having difficulty swallowing and she continued to have persistent aspiration. There was a CAT call on her at 1 point in time due to acute SOB from aspiration and she was moved from the floor to CICU. However during the hospital course she did not improve so palliative Medicine was consulted. Patient was evaluated and subsequently a decision was made by the family to go hospice. Unfortunately the patient was evaluated today and hospice deemed that she probably would need inpatient because of rapid decline in her symptoms. This was done early this morning. At about 1633 patient was found with no signs of vitality and was pronounced . cc: Shine Clifford MD MTDD
== END 2016-11-08 16:33 | disposition expired ==
LOC: EDBD → ED 12:22 → EDIPHOLD 16:40 → SUATTDRO 16:40 → 4N 19:18 → 3S 11-05 20:41
PROVIDERS: ATTEND Internal Medicine